=== PATIENT | female | born 1995 | race Caucasian/White ===

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

== ENCOUNTER 2018-10-04 08:42 | Day surgery (SDC) | payer BC ==
[~2018-10-04] VITALS: Ht 157.5 cm; Wt 54.5 kg
[2018-10-04 09:20] VITALS: BP 119/75
== END 2018-10-04 12:09 | disposition home or self-care (01) ==
LOC: CACL 08:42
PROVIDERS: ATTEND Internal Medicine Cardiovascular Disease
DX: R55 Syncope and collapse (principal)
CPT/HCPCS: 93660